=== PATIENT | male | born 1945 | race Caucasian/White ===

== ENCOUNTER 2017-04-05 17:49 | Emergency (ER) | payer OTHER, MEDICARE, BC ==
[2017-04-05 18:40] LABS: ABSOLUTE BASOPHILS # (AUTO) 0.1 10^3/uL (0.0-0.2); ABSOLUTE EOSINOPHILS # (AUTO) 0.3 10^3/uL (0.0-0.6); ABSOLUTE LYMPHOCYTES (AUTO) 2.3 10^3/uL (0.5-4.7); ABSOLUTE MONOCYTES (AUTO) 0.7 10^3/uL (0.1-1.4); ABSOLUTE NEUT (AUTO) 8.5 10^3/uL (1.7-8.2); BASOPHILS % (AUTO) 0.7 % (0-2); EOSINOPHILS % (AUTO) 2.8 % (0-6); HEMATOCRIT 38.4 % (37.9-51.0); HEMOGLOBIN 12.8 g/dL (13.5-17.0); LYMPHOCYTES % (AUTO) 19.7 % (13-45); MEAN CORPUSCULAR HEMOGLOBIN 30.4 pg (27.0-33.4); MEAN CORPUSCULAR HGB CONC 33.3 g/dL (32.0-36.0); MEAN CORPUSCULAR VOLUME 91 fl (80-97); MONOCYTES % (AUTO) 5.7 % (3-13); PLATELET COUNT 341 10^3/uL (150-450); RED CELL DISTRIBUTION WIDTH 14.1 % (11.5-14.0); SEGMENTED NEUTROPHILS % (AUTO) 71.1 % (42-78); TOTAL CELLS COUNTED % (AUTO) 100 %; WHITE BLOOD COUNT 11.9 10^3/uL (4.0-10.5)
[2017-04-05 19:04] LABS: APPEARANCE,URINE SLIGHTLY-CLOUDY; BILIRUBIN,URINE NEGATIVE (NEGATIVE); COLOR,URINE YELLOW; GLUCOSE, URINE NEGATIVE (NEGATIVE); KETONES,URINE NEGATIVE (NEGATIVE); LEUKOCYTE ESTERASE,URINE MODERATE (NEGATIVE); NITRITE,URINE POSITIVE (NEGATIVE); PROTEIN,URINE NEGATIVE (NEGATIVE); URINE SPECIFIC GRAVITY 1.011; UROBILINOGEN,URINE NEGATIVE mg/dL (<2.0)
[2017-04-05 19:08] LABS: ALANINE AMINOTRANSFERASE 40 U/L (21-72); ALBUMIN 3.9 g/dL (3.5-5.0); ALKALINE PHOSPHATASE 102 U/L (38-126); ANION GAP 9 (5-19); ASPARTATE AMINO TRANSFERASE 21 U/L (17-59); BLOOD UREA NITROGEN 11 mg/dL (7-20); CALCIUM 9.4 mg/dL (8.4-10.2); CARBON DIOXIDE 31 mmol/L (22-30); CHLORIDE 103 mmol/L (98-107); GLUCOSE 130 mg/dL (75-110); POTASSIUM 4.6 mmol/L (3.6-5.0); SODIUM 143.3 mmol/L (137-145); TOTAL PROTEIN 6.3 g/dL (6.3-8.2)
[2017-04-05 19:10] LABS: ACETAMINOPHEN < 10 ug/mL (10-30); ALCOHOL < 10 mg/dL (NONE DETECTED); BILIRUBIN,TOTAL < 0.1 mg/dL (0.2-1.3); SALICYLATE < 1.0 mg/dL (2.0-20.0)
[2017-04-05 19:20] LABS: URINE AMPHETAMINES SCREEN NEGATIVE; URINE BARBITURATES SCREEN NEGATIVE; URINE BENZODIAZEPINES SCREEN NEGATIVE; URINE COCAINE SCREEN NEGATIVE; URINE MARIJUANA (THC) SCREEN NEGATIVE; URINE METHADONE SCREEN NEGATIVE; URINE PHENCYCLIDINE SCREEN NEGATIVE
--- NOTE | 2017-04-05 22:37 | EKG REPORT ---
SEVERITY:- ABNORMAL ECG - SINUS RHYTHM LEFT AXIS DEVIATION NONSPECIFIC T ABNORMALITIES, INFERIOR LEADS : Confirmed by: Ferdinand Araujo 05-Apr-2017 22:36:52
[2017-04-05] MEDS ORDERED: RISPERIDONE 1 MG TABLET PO ONE (22:47)
--- NOTE | 2017-04-05 22:51 | ER Document Report ---
ED General - General Chief Complaint: Depression Stated Complaint: SUCIDAL IDEATION Time Seen by Provider: 04/05/17 19:13 Cannot obtain history due to: Mentally challenged Notes: Patient is a 71-year-old male with a history of multiple strokes in the past including a frontal lobe stroke in 2016 who presents with family with approximately 1 year of progressively worsening disinhibited behaviors including demonstrating physical and verbal violence towards family members, making sexually explicit straight statements, accusing his of inappropriate behaviors, and being difficult to redirect. He has also apparently tried on multiple attempts to kill himself by hanging. He has wrapped an electrical cord around his neck and strap into the bedpost. A knife also to be wrestled away from several months ago. Nothing necessarily was new or different today that prompted the emergency department visit other than family reports that they cannot deal with this anymore. They are increasingly concerned about the safety of family members in the home. The patient has not had any localizing infectious symptoms, no acute change in behavior today. The family has been taking the patient to his general doctor but the patient has not been placed on any antipsychotic medications. They have not noted that anything seems to improve or worsen his violent outbursts. TRAVEL OUTSIDE OF THE [place] IN LAST 30 DAYS: No - Related Data Allergies/Adverse Reactions: codeine [Codeine] Allergy (Verified 03/24/15 16:27) Past Medical History - General Information source: Patient, Relative - Social History Smoking Status: Former Smoker Chew tobacco use (# tins/day): No Frequency of alcohol use: None Drug Abuse: None Lives with: Family Family History: Reviewed & Not Pertinent Patient has suicidal ideation: Yes Patient has homicidal ideation: Yes - Past Medical History Cardiac Medical History: Reports: Hx Hypertension Pulmonary Medical History: Reports: Hx Asthma, Hx COPD Endocrine Medical History: Reports: Hx Diabetes Mellitus Type 1 Renal/ Medical History: Denies: Hx Peritoneal Dialysis Past Surgical History: Reports: Hx Orthopedic Surgery Review of Systems - Review of Systems Notes: Constitutional: Negative for fever. HENT: Negative for sore throat. Eyes: Negative for visual changes. Cardiovascular: Negative for chest pain. Respiratory: Negative for shortness of breath. Gastrointestinal: Negative for abdominal pain, vomiting or diarrhea. Genitourinary: Negative for dysuria. Musculoskeletal: Negative for back pain. Skin: Negative for rash. Neurological: Negative for headaches, weakness or numbness. 10 point ROS negative except as marked above and in HPI. Physical Exam - Vital signs Vitals: Temp Pulse Resp BP Pulse Ox 98.2 F 69 20 108/55 L 97 04/05/17 17:55 04/05/17 17:55 04/05/17 17:55 04/05/17 17:55 04/05/17 17:55 Interpretation: Normal Notes: PHYSICAL EXAMINATION: GENERAL: Appears frail but in no acute distress HEAD: Atraumatic, normocephalic. EYES: Pupils equal round and reactive to light, extraocular movements intact, sclera anicteric, conjunctiva are normal. ENT: nares patent, oropharynx clear without exudates. Moderately dry mucous membranes. NECK: Normal range of motion, supple without lymphadenopathy LUNGS: Breath sounds clear to auscultation bilaterally and equal. No wheezes rales or rhonchi. HEART: Regular rate and rhythm without murmurs ABDOMEN: Soft, nontender, normoactive bowel sounds. No guarding, no rebound. No masses appreciated. EXTREMITIES: Normal range of motion, no pitting or edema. No cyanosis. NEUROLOGICAL: No focal neurological deficits. Moves all extremities spontaneously and on command. PSYCH: Perseverates on that his does not have sexual intercourse with him, regularly accuses her while I am in the room of leaving the house to have sex with other people. Admits to suicidal ideation without a plan. SKIN: Warm, Dry, normal turgor, no rashes or lesions noted. Course - Re-evaluation Re-evalutation: 04/05/17 22:47 Patient presents with over a year progressively worsening behavioral disturbances likely secondary to a frontal lobe stroke he sustained in 2016. Patient is demonstrating physical and verbal aggression towards family, sexually inappropriate behavior, and extremely fluctuating moods. 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 Patient does not have any acute psychiatric symptoms at time of assessment, stating he knows he needs to be here because of his increasing hostility towards family and his inappropriate behaviors. He will likely not respond well to medications but I will try risperidone. Will keep in the emergency department to discuss a psychiatry in the morning. Family is aware that in the long-term, he may require placement for frequent family safety. - Vital Signs Vital signs: Temp Pulse Resp BP Pulse Ox 99.3 F 67 16 105/58 L 95 04/05/17 20:46 02/05/18 20:46 04/05/17 20:46 04/05/17 20:46 04/05/17 20:46 - Laboratory Result Diagrams: 04/05/17 18:30 04/05/17 18:30 Laboratory results interpreted by me: 04/05/17 04/05/17 04/05/17 18:30 18:30 18:50 WBC 11.9 H RBC 4.20 L Hgb 12.8 L RDW 14.1 H Absolute Neutrophils 8.5 H Carbon Dioxide 31 H Glucose 130 H Total Bilirubin < 0.1 L Urine Nitrite POSITIVE H Ur Leukocyte Esterase MODERATE H Salicylates < 1.0 L Acetaminophen < 10 L - EKG Interpretation by Me Additional EKG results interpreted by me: 04/06/17 03:30 Normal sinus rhythm. Rate 69. No ST elevations or depressions. QTC is 459. Discharge - Discharge Clinical Impression: Aggressive behavior of adult, Disinhibition behavior Condition: Fair Disposition: PSYCH HOSP/UNIT Referrals: LAURI SOLANO MD [Primary Care Provider] - Follow up as needed
[2017-04-05] MEDS ORDERED: ACETAMINOPHEN 325 MG TABLET PO ONE (23:32)
[2017-04-05] MEDS ORDERED: MIRTAZAPINE 15 MG TABLET PO ONE (23:45)
[2017-04-06] MEDS: METFORMIN HCL 500 MG TABLET PO SCH (07:11)
[2017-04-06] MEDS: AMLODIPINE BESYLATE 5 MG TABLET PO SCH (07:12)
[2017-04-06] MEDS: CLOPIDOGREL BISULFATE 75 MG TABLET PO SCH (07:13)
[2017-04-06] MEDS: LANSOPRAZOLE 30 MG TAB.RAP.DR PO SCH (07:14)
[2017-04-06] MEDS: METOPROLOL TARTRATE 25 MG TABLET PO SCH (07:14)
[2017-04-06] MEDS ORDERED: FLUOXETINE HCL 20 MG CAPSULE PO SCH (10:15)
[2017-04-06] MEDS ORDERED: CARBAMAZEPINE 200 MG TABLET PO SCH (10:30)
--- NOTE | 2017-04-06 10:32 | RADIOLOGY REPORT (SQ) ---
EXAM DESCRIPTION: CT HEAD WITHOUT COMPLETED DATE/TIME: 04/06/2017 10:16 am REASON FOR STUDY: bed 47 r/o bleeding COMPARISON: 06/19/2015 TECHNIQUE: Axial images acquired through the brain without intravenous contrast. Images reviewed wi th bone, brain and subdural windows. Images stored on PACS. All CT scanners at this facility use dose modulation, iterative reconstruction, and/or weight based d osing when appropriate to reduce radiation dose to as low as reasonably achievable (ALARA). [facility]: Dose Right [facility]: CareDose [facility]: Dose Right [facility]: Teradose 4D [facility]: Smart Medisas RADIATION DOSE: CT Rad equipment meets quality standard of care and radiation dose reduction techniq ues were employed. CTDIvol: 64.6 mGy. DLP: 1163 mGy-cm. mGy. LIMITATIONS: None. FINDINGS: VENTRICLES: Prominent ventricles secondary to involutional atrophy. CEREBRUM: No intracranial hemorrhage. No mass effect. Large area decreased attenuation involving th e right parietal-occipital region which was not present on the previous CT scan represents subacute o r chronic infarction. CEREBELLUM: No masses. No hemorrhage. No alteration of density. No evidence for acute infarction. EXTRAAXIAL SPACES: No fluid collections. No masses. ORBITS AND GLOBE: No intra- or extraconal masses. Normal contour of globe without masses. CALVARIUM: No fracture. PARANASAL SINUSES: No fluid or mucosal thickening. SOFT TISSUES: No mass or hematoma. OTHER: No other significant finding. IMPRESSION: No intracranial hemorrhage. Since the previous CT scan of 03/24/2015 there has been deve lopment of a large right parieto-occipital infarct. Subacute versus chronic. Small old lacunar infa rcts. EVIDENCE OF ACUTE STROKE: NO. COMMENT: Quality ID # [id number]: Final reports with documentation of one or more dose reduction techniques (e.g., Automated exposure control, adjustment of the mA and/or kV according to patient size, use of iterative reconstruction technique) TECHNICAL DOCUMENTATION: JOB ID: [id number]- All Rights Reserved
--- NOTE | 2017-04-06 11:28 | PSYCHOLOGICAL NOTE ---
Psych Note - Psych Note Psych Note: Reason for consult: IVC due to increased aggression and sexualized behaviors Contact permission: Patient gave verbal consent to speak to family present ( Shira, daughter Narcisa, [id number] Mayra) Patient is a 71 year old male who presented to the ED last evening for increased aggression, inappropriate sexualized behaviors, and bizarre behaviors. He has had two potts with most recent in June 2016. 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 His symptoms and behaviors are likely a result of neuro-generative processes due to potts that have affected frontal lobe and and right parietal occipital region.
[2017-04-06] MEDS ORDERED: FINASTERIDE 5 MG TABLET PO SCH (12:00)
[2017-04-06] MEDS ORDERED: LOSARTAN POTASSIUM 25 MG TABLET PO SCH (12:00)
[2017-04-06] MEDS ORDERED: PAROXETINE HCL 20 MG TABLET PO SCH (12:00)
[2017-04-06] MEDS ORDERED: ASPIRIN 81 MG TABLET, CHEWABLE PO SCH (12:00)
[2017-04-06] MEDS ORDERED: ALBUTEROL SULFATE 0.083% NEB 2.5 MG/3 ML AMPUL NEB SCH (18:00)
[2017-04-06] MEDS ORDERED: TAMSULOSIN HCL 0.4 MG CAP.SR.24H PO SCH (18:00)
[2017-04-06] MEDS ORDERED: CLONIDINE HCL 0.1 MG TABLET PO SCH (22:00)
[2017-04-06] MEDS ORDERED: BUSPIRONE HCL 10 MG TABLET PO SCH (22:00)
[2017-04-06] MEDS ORDERED: MIRTAZAPINE 15 MG TABLET PO SCH (22:00)
[2017-04-07 07:19] VITALS: BP 117/64
--- NOTE | 2017-04-07 09:43 | ER Document Report ---
ED General - General Chief Complaint: Depression Stated Complaint: SUCIDAL IDEATION Time Seen by Provider: 04/05/17 19:13 TRAVEL OUTSIDE OF THE [place] IN LAST 30 DAYS: No - HPI Patient complains to provider of: AMS Notes: 71-year-old male altered mental status history stroke abnormal behavior at home. Family takes care of the patient 24 hours a day. Adult daughter, . Patient seen by psychiatry. Unreliable review of systems. - Related Data Allergies/Adverse Reactions: codeine [Codeine] Allergy (Verified 03/24/15 16:27) Past Medical History - General Information source: Patient, Relative - Social History Smoking Status: Former Smoker Chew tobacco use (# tins/day): No Frequency of alcohol use: None Drug Abuse: None Lives with: Family Family History: Reviewed & Not Pertinent Patient has suicidal ideation: Yes Patient has homicidal ideation: Yes - Past Medical History Cardiac Medical History: Reports: Hx Hypertension Pulmonary Medical History: Reports: Hx Asthma, Hx COPD Endocrine Medical History: Reports: Hx Diabetes Mellitus Type 1 Renal/ Medical History: Denies: Hx Peritoneal Dialysis Past Surgical History: Reports: Hx Orthopedic Surgery Review of Systems - Review of Systems -: Yes ROS unobtainable due to patient's medical condition Physical Exam - Vital signs Vitals: Temp Pulse Resp BP Pulse Ox 98.2 F 69 20 108/55 L 97 04/05/17 17:55 04/05/17 17:55 04/05/17 17:55 04/05/17 17:55 04/05/17 17:55 Interpretation: Normal - General General appearance: Appears well, Alert - HEENT Head: Normocephalic, Atraumatic Eyes: Normal Pupils: PERRL - Respiratory Respiratory status: No respiratory distress Chest status: Nontender Breath sounds: Normal Chest palpation: Normal - Cardiovascular Rhythm: Regular Heart sounds: Normal auscultation Murmur: No - Abdominal Inspection: Normal Distension: No distension Bowel sounds: Normal Tenderness: Nontender Organomegaly: No organomegaly - Back Back: Normal, Nontender - Extremities General upper extremity: Normal inspection, Nontender, Normal color, Normal ROM , Normal temperature General lower extremity: Normal inspection, Nontender, Normal color, Normal ROM , Normal temperature, Normal weight bearing. No: Kendra's sign - Neurological Neuro grossly intact: Yes Cognition: Normal Orientation: AAOx4 [place] Coma Scale Eye Opening: Spontaneous [place] Coma Scale Verbal: Oriented Lizbet Coma Scale Motor: Obeys Commands Berg[place] Coma Scale Total: 15 Speech: Normal Motor strength normal: LUE, RUE, LLE, RLE Sensory: Normal - Psychological Associated symptoms: Normal affect, Normal mood - Skin Skin Temperature: Warm Skin Moisture: Dry Skin Color: Normal Course - Re-evaluation Re-evalutation: 04/07/17 09:37 See multiple notes from psychiatry and nursing staff regarding patient. Patient now cleared for discharge by psychiatry. Will discontinue Prozac per their recommendation, begin BuSpar, Tegretol, clonidine. Follow-up scheduled with psychiatry and family 04/07/17 09:43 Scripts written for psyche Buspar 10 mg QHS Tegrotol 400 mg BID Clonidine 0.1 mg QHS 04/07/17 09:44 lEVEL BILLING dR. Elva Taylor Level Billing Dr. Elva Taylor - Vital Signs Vital signs: Temp Pulse Resp BP Pulse Ox 98.7 F 94 14 117/64 97 04/07/17 07:12 04/07/17 07:12 04/07/17 07:12 04/07/17 07:12 04/07/17 07:12 - Laboratory Result Diagrams: 04/05/17 18:30 04/05/17 18:30 Laboratory results interpreted by me: 04/05/17 04/05/17 04/05/17 18:30 18:30 18:50 WBC 11.9 H RBC 4.20 L Hgb 12.8 L RDW 14.1 H Absolute Neutrophils 8.5 H Carbon Dioxide 31 H Glucose 130 H Total Bilirubin < 0.1 L Urine Nitrite POSITIVE H Ur Leukocyte Esterase MODERATE H Salicylates < 1.0 L Acetaminophen < 10 L Discharge - Discharge Clinical Impression: Aggressive behavior of adult, Disinhibition behavior Condition: Stable Disposition: HOME, SELF-CARE Instructions: Depression ([facility], [facility]) Referrals: LAURI SOLANO MD [Primary Care Provider] - Follow up as needed
[2017-04-07] MEDS: METFORMIN HCL 500 MG TABLET PO SCH (09:55)
[2017-04-07] MEDS: CLOPIDOGREL BISULFATE 75 MG TABLET PO SCH (09:55)
[2017-04-07] MEDS: METOPROLOL TARTRATE 25 MG TABLET PO SCH (09:56)
[2017-04-07] MEDS: LANSOPRAZOLE 30 MG TAB.RAP.DR PO SCH (09:58)
[2017-04-07] MEDS: AMLODIPINE BESYLATE 5 MG TABLET PO SCH (10:00)
[2017-04-07] MEDS ORDERED: ALBUTEROL SULFATE 0.083% NEB 2.5 MG/3 ML AMPUL NEB SCH (20:00)
--- NOTE | 2017-04-08 20:24 | PSYCHOLOGICAL NOTE ---
Psych Note - Psych Note Psych Note: Plan is still to move forward with discharge home. Family will continue care giving. ED social work spoke to family about available options and patient already had some in home care through [facility] (a nurse once a week and an aid once a week). Patient will need scripts for medications administered in ED. Recommendation to discontinue the Prozac since family reported hallucinations a couple hours after he received it yesterday. 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 Checked in with ED social worker school who will be arranging discharge. Consulted with Dr. Daniel regarding the management and care of patient.
== END 2017-04-07 13:16 | disposition home or self-care (01) ==
LOC: ER 17:49
DX: F91.9 Conduct disorder, unspecified (principal); F32.9 Major depressive disorder, single episode, unspecified; Z87.891 Personal history of nicotine dependence
CPT/HCPCS: 36415; 80053; 80307; 81001; 85025; 87086; 87088; 87186; 93005; 93010; 94640; 99285